=== PATIENT | female | born 1990 | race Caucasian/White ===

== ENCOUNTER 2017-05-16 12:29 | Emergency (ER) | payer MEDICAID, BC, OTHER ==
[2017-05-16 16:26] LABS: INFLUENZA A AMPLIFICATION NEGATIVE (NEGATIVE); INFLUENZA B AMPLIFICATION NEGATIVE (NEGATIVE); RSV AMPLIFICATION NEGATIVE (NEGATIVE)
== END 2017-05-16 16:08 | disposition home or self-care (01) ==
LOC: M ED 12:29
DX: J01.90 Acute sinusitis, unspecified (principal); R30.0 Dysuria
CPT/HCPCS: 87631

== ENCOUNTER → 2017-12-29 | Outpatient (CLI) | payer OTHER ==
[2017-12-29 10:15] LABS: HEMATOCRIT 35.3 % (36.0-47.0); HEMOGLOBIN 11.3 g/dl (12.0-15.5); MEAN CORPUSCULAR HEMOGLOBIN 29.4 pg (27.0-33.0); MEAN CORPUSCULAR VOLUME 91.7 fl (80.0-96.0); PLATELET COUNT, AUTOMATED 181 10^3/uL (150-450); RED BLOOD COUNT 3.85 10^6/uL (4.00-5.40); WHITE BLOOD COUNT 10.8 10^3/uL (4.0-10.0)
[2017-12-29 10:26] LABS: GLUCOSE CHALLENGE TEST 1 HOUR 87 MG/DL (LESS THAN 140)
== END ==
LOC: M RAD 07:45
DX: Z36.9 Encounter for antenatal screening, unspecified (principal); Z3A.29 29 weeks gestation of pregnancy
CPT/HCPCS: 76820

== ENCOUNTER → 2018-01-29 | Outpatient (CLI) | payer OTHER | LOC: M RAD 09:04 | DX: O99.89 Other specified diseases and conditions complicating pregnancy, childbirth and the puerperium (principal); N13.30 Unspecified hydronephrosis; Z3A.33 33 weeks gestation of pregnancy | CPT/HCPCS: 76816 ==

== ENCOUNTER → 2018-02-13 | Outpatient (CLI) | payer OTHER | LOC: M RAD 06:55 | DX: Z36.89 Encounter for other specified antenatal screening (principal); Z3A.36 36 weeks gestation of pregnancy | CPT/HCPCS: 76816 ==

== ENCOUNTER → 2018-02-28 | Outpatient (REF) | payer OTHER ==
[~2018-02-28] MED LIST: ZITHTAB PO
== END ==
LOC: M LAB REF 17:15
PROVIDERS: ATTEND Specialist
DX: Z36.89 Encounter for other specified antenatal screening (principal); Z3A.35 35 weeks gestation of pregnancy

== ENCOUNTER 2018-03-23 06:09 | Inpatient (IN) | payer MEDICAID, OTHER ==
[2018-03-23] VITALS (32 sets, daily range): BP systolic 119–160; BP diastolic 67–103
[~2018-03-23] VITALS: Ht 172.7 cm; Wt 91.9 kg
[2018-03-23] MEDS ORDERED: PRENTAB9 PO (06:34)
[2018-03-23] MEDS: miSOPROStol 50 MCG 1/2 TAB (S0191) PO SCH ×2 (09:56→14:27)
--- NOTE | 2018-03-23 10:00 | HPEPDOC ---
Obstetrical History & Physical General Date of Admission Mar 23, 2018 at 06:09 History of Present Illness Chief Complaint: Induction of labor Information Provided By: Patient Age: 27 : 2 Term: 1 Pre-term: 0 Abortions: 0 Livin Care Care: Good Care Dating Final EDC: Mar 30, 2018 Final EDC by: LMP EGA at Admission: 39 Antepartum Course Height (inches): 68 Pre- weight (lbs.): 152 Admission Weight (lbs.): 202 Past Medical History Past Obstetrical History : Past Obstetrical History: Primgravida (04/2015) Type of Delivery: Spontaneous Vaginal Del. Sex of Infant: Female (8#2) FIXED INCOME ANALYST History: Abnormal Pap Past Medical History Medical History Childhood asthma Surgical History: Other (Dental, left eye cyst) Family History Significant Family History: Cancer, Diabetes, Hypertension, Renal disease Social History Marital Status: Family situation: Spouse/partner home Psychosocial History: No pertinent psych hx * Smoker: non-smoker Alcohol: Denies Drugs: denies Imunizations Tdap status: current Influenza Status: current Allergies Coded Allergies: No Known Drug Allergy (Unverified Allergy, Unknown, 03/23/18) Medications Scheduled Multivitamins/ ( 27-0.8 mg) 1 Tab Tab, 1 TAB PO DAILY Physical Examination Physical Examination GENERAL: Alert and oriented times three. BREAST: . ABDOMEN: Gravid and non-tender to touch. FETUS: Is vertex (VTX) by sterile vaginal examination (SVE), fetus is vertex (VTX) by Rigo. HEART RATE: Regular rate and rhythm. LUNGS: Clear to auscultation (CTA). EXTREMITIES: No edema. No clonus. Deep tendon reflexes (DTRs) + 2. Vital Signs/I&O Vital Signs Date Time Temp Pulse Resp B/P (MAP) Pulse Ox O2 Delivery O2 Flow Rate FiO2 03/23/18 07:03 98.6 18 134/72 (92) Laboratory Data [facility] Laboratory Tests 2 03/23/18 07:13: Serology Scanned Report Hepatitis B Testing Pertinent Laboratoy Data Blood Type: O+ RBC Antibody Screen: Negative HIV: Negative Hepatitis B: Negative Hepatitis C: Negative Rapid Plasma Reagin: Nonreactive Rubella: Nonreactive Chlamydia/Gonorrhea: Negative Group B Streptococcus: Positive Quad Screen Test: Unknown (Panorama low risk) Glucose Tolerance Test: 87 Anatomy Ultrasound Ultrasound Date: Nov 02, 2017 Placenta Location: Anterior Normal Anatomy: Yes Placenta Previa: No Estimated Weight (grams): 337 Other Ultrasounds 08/22/17 - dating 8w4d 09/20/17 - ED visit "brain appears abnormal, excessive fluid in cranial vault" 09/29/17 [facility] [employer] DISPATCHER - 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, head/brain appear normal 12/29/17 - growth, bilateral pelviectasis and R hydronephrosis 01/29/18 - L pelviectasis and Ri hydronephrosis 02/13/18 - continued R hydronephrosis with suggestion duplicated collecting system Steroid Therapy Steroid Therapy: No Vaginal Examination Dilation: 2cm Effacement: 50% Station: -3 Cervical Consistency: Soft Cervical Position: Posterior Presentation: Cephalic presentation Assessment Heart Rate (FHR): 150 Variability: Moderate Accelerations: Positive Decelerations: None Tocometer Frequency: irregular Assessment/Plan Assessment Adele is a 27-year-old (G)2 para (P)1-0-0-1 at 39 weeks by 8-week ultrasound. Presents to Labor and Delivery (L&D) for elective social induction of labor. Denies LOF or bleeding. Fetus active. Plan Admit and orient per consult Dr Carter Kiln Operator and consent. Diet: Regular. Group B Streptococcus (GBS) positive. Treat in active labor. Labs and intravenous (IV) per unit protocol. Counseled on misoprostol, Pitocin and induction of labor (IOL). Saline lock to start Pt plans epidural for labor management Anticipate normal spontaneous delivery () C-S as appropriate. Lyn Reveles CNM Mar 23, 2018 10:00
[2018-03-23 10:23] LABS: HEMATOCRIT 36.2 % (36.0-47.0); HEMOGLOBIN 11.7 g/dl (12.0-15.5); MEAN CORPUSCULAR HEMOGLOBIN 28.9 pg (27.0-33.0); MEAN CORPUSCULAR HGB CONC 32.3 g/dl (32.0-36.5); MEAN CORPUSCULAR VOLUME 89.4 fl (80.0-96.0); PLATELET COUNT, AUTOMATED 149 10^3/uL (150-450); RED BLOOD COUNT 4.05 10^6/uL (4.00-5.40); WHITE BLOOD COUNT 9.8 10^3/uL (4.0-10.0)
[2018-03-23] MEDS ORDERED: PENICILLIN G POTASSIUM IV 5 MU in D5W MINI-BAG PLUS 100 ML IV STA (18:35)
[2018-03-23] MEDS ORDERED: LR 1,000 ML IV SCH (18:37)
--- NOTE | 2018-03-23 18:37 | IPNPDOC ---
Text Note Date of Service The patient was seen on 03/23/18. NOTE Becoming more uncomfortable, breathing with UC Has had misorostol x3 UC 3-4 minutes apart, x 60 seconds, moderate FH 135, Cat I SVE 2-3/80/-2 Start pitocin and PCN Pt planning epidural soon VS,Fishbone, I+O VS, Fishbone, I+O Laboratory Tests 03/23/18 09:59 Red Blood Count 4.05, Mean Corpuscular Volume 89.4, Mean Corpuscular Hemoglobin 28.9, Mean Corpuscular Hemoglobin Concent 32.3, Red Cell Distribution Width 14.0 Vital Signs Date Time Temp Pulse Resp B/P (MAP) Pulse Ox O2 Delivery O2 Flow Rate FiO2 03/23/18 18:27 99.0 80 18 127/74 (91) Lyn Reveles CNM Mar 23, 2018 18:37
[2018-03-23] MEDS ORDERED: FENTANYL 2MCG/ML ROPIVACAINE 0.2% IN 0.9% NACL 100ML IVBAG As Ordered ONE (18:45)
[2018-03-23] MEDS ORDERED: OXYTOCIN DRIP 30 UNITS in APPROPRIATE DILUENT 1 EA IV SCH (18:45)
[2018-03-23] MEDS ORDERED: NALOXONE INJ 0.4 MG/1 ML VIAL (J2310) IV PRN (22:00)
[2018-03-23] MEDS ORDERED: EPIDURAL COMMENT XX SCH (22:00)
[2018-03-23] MEDS ORDERED: ONDANSETRON 4MG/2ML VIAL (J2405) IV PRN (22:00)
[2018-03-23] MEDS ORDERED: ePHEDrine SULFATE 25 MG/5 ML(5MG/ML) SYRINGE IV PRN (22:00)
[2018-03-23] MEDS ORDERED: LACTATED RINGER'S 1000 ML IV PRN (22:00)
[2018-03-23] MEDS ORDERED: diphenhydrAMINE INJ 50MG/ML VIAL (J1200) IV PRN (22:00)
[2018-03-23] MEDS ORDERED: FENTANYL/ROPIVACAINE/NACL BAG 100 ML EPIDURAL SCH (22:00)
[2018-03-23] MEDS ORDERED: EPIDURAL/PCA KEYS XX PRN (22:00)
[2018-03-23] MEDS ORDERED: REFRIGERATOR IV KEYS XX PRN (22:00)
[2018-03-23] MEDS ORDERED: PENICILLIN G POTASSIUM IV 2.5 MU in APPROPRIATE DILUENT 1 EA IV SCH (22:45)
[2018-03-24] VITALS (11 sets, daily range): BP systolic 111–150; BP diastolic 72–109
[2018-03-24] MEDS ORDERED: METHYLERGONOVINE MALEATE 0.2 MG TAB PO PRN (01:30)
[2018-03-24] MEDS ORDERED: ANUSOL HC CREAM 30GM TOP PRN (01:30)
[2018-03-24] MEDS ORDERED: MOM 30ML SUSPENSION UDC PO PRN (01:30)
[2018-03-24] MEDS ORDERED: MEASLES,MUMPS,RUBELLA VACCINE INJ (MMR-II) (90707) SC SCH (01:30)
[2018-03-24] MEDS ORDERED: RHOGAM 300 MCG (1500 IU) INJ (J2790) IM SCH (01:30)
[2018-03-24] MEDS ORDERED: DIBUCAINE 1% OINTMENT 30GM TOP PRN (01:30)
--- NOTE | 2018-03-24 01:46 | DNPDOC ---
[facility] Delivery Note Delivery Note DATE OF DELIVERY: 03/24/18 PREDELIVERY DIAGNOSIS: 39-1/7 weeks' gestation and labor. POST DELIVERY DIAGNOSIS: Delivered. PROCEDURE: Spontaneous vaginal delivery. PROVIDER: Lyn Reveles CNM ANESTHESIA: Epidural. ESTIMATED BLOOD LOSS: 400 mL. FINDINGS: 8 pound 11 ounce, 3940gm female infant, Score 8/9, no nuchal cord. DELIVERY SUMMARY: Patient is a 27-year-old 2 now para 2-0-0-2 who was admitted to labor and delivery for elective induction of labor at term. She received misoprostol followed by pitocin. Adequate GBS prophylaxis was provided. An epidural was utilized for labor coping. FD 2354. Viable female delivered ROP @ 0104. Spontaneous respirations, transitioned on maternal abdomen. Cord doubly, clamped once pulsations ceased and cut by FOB under my direction. Apgars 8/9. Placenta ackerman, intact with 3v cord @ 0119. Fundus firmed with massage and IV pitocin bolus. EBL 400ml. Cervix, vagina and perineum inspected, noted to be intact. Sponge, sharp and instrument count correct. Infant wt 3940gm, 8#11. Parents are naming their daughter Evita Osorio. Lyn Reveles CNM Mar 24, 2018 01:46
[2018-03-24] MEDS ORDERED: METHYLERGONOVINE MALEATE 0.2 MG/ML VIAL (J2210) IM ONE (03:30)
--- NOTE | 2018-03-24 03:32 | IPNPDOC ---
Text Note Date of Service The patient was seen on 03/24/18. NOTE Called to room to evaluate bleeding. Uterus 2 above umbilicus Pt unable to void Straight cath for 700ml. Vagina and cervix swept for 500ml clots Fundus 2below, firm Methergine 0.2mg IM given Methergine 0.2mg PO Q 6 hours starting 4 hours after IM dose. Enc frequent voiding. VS,Fishbone, I+O VS, Fishbone, I+O Laboratory Tests 03/23/18 09:59 Red Blood Count 4.05, Mean Corpuscular Volume 89.4, Mean Corpuscular Hemoglobin 28.9, Mean Corpuscular Hemoglobin Concent 32.3, Red Cell Distribution Width 14.0 Vital Signs Date Time Temp Pulse Resp B/P (MAP) Pulse Ox O2 Delivery O2 Flow Rate FiO2 03/23/18 23:30 99.1 03/23/18 23:21 81 18 145/103 (117) I&O- Last 24 Hours up to 6 AM 03/24/18 06:00 Intake Total 2881 ml Output Total 1600 ml Balance 1281 ml Lyn Reveles CNM Mar 24, 2018 03:32
[2018-03-24] MEDS: IBUPROFEN 800 MG TAB PO PRN ×4 (04:58→23:23)
[2018-03-24 07:19] LABS: HEMATOCRIT 33.2 % (36.0-47.0); HEMOGLOBIN 10.9 g/dl (12.0-15.5); MEAN CORPUSCULAR HEMOGLOBIN 29.1 pg (27.0-33.0); MEAN CORPUSCULAR HGB CONC 32.8 g/dl (32.0-36.5); MEAN CORPUSCULAR VOLUME 88.5 fl (80.0-96.0); PLATELET COUNT, AUTOMATED 137 10^3/uL (150-450); RED BLOOD COUNT 3.75 10^6/uL (4.00-5.40); WHITE BLOOD COUNT 16.8 10^3/uL (4.0-10.0)
[2018-03-24] MEDS: PRENATAL VITAMINS CHEWABLE TABLET PO SCH (07:58)
[2018-03-24] MEDS: METHYLERGONOVINE MALEATE 0.2 MG TAB PO SCH ×3 (07:58→19:57)
[2018-03-24] MEDS: ACETAMINOPHEN 500 MG TAB PO PRN ×3 (07:59→19:57)
[2018-03-25] MEDS: DOCUSATE SODIUM 100 MG CAP PO PRN ×2 (01:15→20:08)
[2018-03-25] MEDS: METHYLERGONOVINE MALEATE 0.2 MG TAB PO SCH (01:16)
[2018-03-25] MEDS ORDERED: METHYLERGONOVINE MALEATE 0.2 MG TAB PO PRN (01:30)
[2018-03-25] MEDS: ACETAMINOPHEN 500 MG TAB PO PRN (02:06)
[2018-03-25 06:00] VITALS: BP 120/78
[2018-03-25] MEDS: IBUPROFEN 800 MG TAB PO PRN ×3 (06:39→21:18)
--- NOTE | 2018-03-25 07:47 | NUR ---
PPD#1 S: Doing well w/o complaints. Decreasing lochia, pain well control, + voids and + BF. O: vss, AF Gen: well appearing abd: soft, nttp with ff@u-1 A/P: PPD#1 s/p with PPH, stable -continue routine care -d/c plans for tomorrow Kathleen Carter MD
[2018-03-25] MEDS: PRENATAL VITAMINS CHEWABLE TABLET PO SCH (09:06)
[2018-03-25 18:00] VITALS: BP 115/67
[2018-03-26] MEDS: IBUPROFEN 800 MG TAB PO PRN ×2 (04:37→12:16)
[2018-03-26 05:46] VITALS: BP 112/74
[2018-03-26] MEDS: PRENATAL VITAMINS CHEWABLE TABLET PO SCH (08:45)
[2018-03-26] MEDS ORDERED: MAPA500T2 PO (09:48)
[2018-03-26] MEDS ORDERED: MILK120011 PO (09:48)
[2018-03-26] MEDS ORDERED: IBUP-1114 PO (09:48)
[2018-03-26] MEDS ORDERED: COLA100C5 PO (09:48)
== END 2018-03-26 14:00 | disposition home or self-care (01) | DRG 560 ==
LOC: M LDI 06:09 → M OBS 03-24 11:58
PROVIDERS: ADMIT Obstetrics & Gynecology; ATTEND Advanced Practice Midwife
PROC: 3E0P7GC Introduction of Other Therapeutic Substance into Female Reproductive, Via Natural or Artificial Opening (ICD-10-PCS; 2018-03-23)
PROC: 10E0XZZ Delivery of Products of Conception, External Approach (ICD-10-PCS; principal; 2018-03-24)
DX: O99.824 Streptococcus B carrier state complicating childbirth (principal); Z3A.39 39 weeks gestation of pregnancy; Z37.0 Single live birth

== ENCOUNTER → 2018-12-25 | Outpatient (REF) | payer OTHER ==
[~2018-12-25] MED LIST changes: +COLA100C5 PO; +IBUP-1114 PO; +MAPA500T2 PO; +MILK120011 PO; +PRENTAB9 PO
== END ==
LOC: M LAB REF 11:02
PROVIDERS: ATTEND Advanced Practice Midwife
DX: R87.612 Low grade squamous intraepithelial lesion on cytologic smear of cervix (LGSIL) (principal)